=== PATIENT | male | born 2000 | race Caucasian/White ===

== ENCOUNTER 2020-11-29 13:43 | Emergency (ER) | payer BC ==
[2020-11-29] MEDS ORDERED: Ketorolac Tromethamine 30 MG/ML VIAL ONE (14:45)
--- NOTE | 2020-11-29 15:17 | RAD ---
LEFT SHOULDER RADIOGRAPHS 3 VIEWS: DATE: 11/29/2020. PROVIDED CLINICAL HISTORY: Fall. FINDINGS: There is no evidence for a fracture or other acute osseous abnormality. If there is persistent clini piotr concern, conservative management and followup imaging are advised. IMPRESSION: As above. POS: [facility]
== END 2020-11-29 15:30 | disposition home or self-care (01) ==
LOC: ERS 13:43
DX: M25.512 Pain in left shoulder (principal); W00.0XXA Fall on same level due to ice and snow, initial encounter
CPT/HCPCS: 96374; J1885